=== PATIENT | male | born 1990 | race Caucasian/White ===

== ENCOUNTER 2023-10-31 09:58 | Emergency (ER) | payer OTHER, SELFPAY ==
[2023-10-31 10:00] VITALS: BP 171/104
[2023-10-31 10:22] VITALS: BP 164/92
--- NOTE | 2023-10-31 10:36 | ED.GENMED ---
History of Present Illness
General
Chief Complaint: Musculo-Skeletal Complaint
Time Seen by Provider: 10/31/23 10:16
Travel History
Have you had any contact with someone who has COVID-19?: No
Do you have any symptoms of coronavirus? Fever > 100 degrees, chills, cough, shortness of breath, sore throat, loss of taste or smell, muscle aches, or headache?: No
History of Present Illness
History of Present Illness:
33 yo male presents to the Emergency Department for evaluation of gradually worsening redness/swelling/pain to the L middle finger x 1 week. Began after he 'bit the cuticle'. Was seen at urgent care yesterday and started on cephalexin but no I&D was
performed. No fevers or chills.
Review of Systems
Review of Systems
Allergies reviewed?: Yes
All Other Systems: ROS reviewed and negative except as documented in HPI and ROS
Phy Exam
Physical Exam
Physical Exam:
GEN: Well appearing, NAD, WDWN
HEENT: Oral mucosa moist, no scleral icterus
Cardiac: Regular rate
Lung: No respiratory distress, no tachypnea
MSK: Swelling/erythema to eponychium/lateral nail fold of L middle finger, c/w paronychia. Some tenderness to finger pad, no induration
Skin: Good color, no pallor or jaundice, no rashes
Neuro: AO x3, moves all extremities freely
Psych: Calm, cooperative
Course
Vital Signs
Initial and Last Documented VS:
Initial Vital Signs
Temp Pulse Resp BP Pulse Ox
98.2 F 104 18 171/104 100
10/31/23 10:00 10/31/23 10:00 10/31/23 10:00 10/31/23 10:00 10/31/23 10:00
Last Documented Vital Signs
Temp Pulse Resp BP Pulse Ox
98.2 F 104 18 164/92 100
10/31/23 10:00 10/31/23 10:00 10/31/23 10:00 10/31/23 10:22 10/31/23 10:00
MDM/Problems Addressed
MDM/Problems Addressed:
The digit was anesthetized w/ 1% lidocaine 4mL, flexor tendon block approach. After gently cleansing the finger with alcohol, an 11 blade scalpel was used to raise the cuticle from the nail plate with rapid purulent discharge. Digit was massaged to
assure all purulence was removed. Digit was then soaked for 10 mins in warm water before applying a dressing.
Recommend holding abx at this time given source is now controlled, ED return parameters discussed
*Critical Care Note
Total Time (30-74mins, 75-104mins- exclusive of procedures): Not Applicable
ED Attending Note
-
Portions of this chart may have been created with voice recognition software.� Occasional wrong word or��sound alike� substitutions may have occurred due to the inherent limitations of voice recognition software.
Discharge Plan
Departure
Patient Disposition: Home (Routine Discharge)
Date of Disposition: 10/31/23
Time of Disposition: 10:36
Patient with high blood pressure during this ER visit?: No
Discharge Problem:
Paronychia of left middle finger
Instructions: Paronychia (DC)
Prescriptions:
No Action
cephalexin
1 tab PO BID
Activity Restrictions/Additional Instructions:
Hold the Keflex (cephalexin) for now. If the redness does not improve in 2-3 days, or if it begins to worsen, begin taking the antibiotic
Soak the finger 1-2 times per day for 15-20 minutes in warm salt water
Return to the ER if you develop severe finger stiffness or fevers
Interventions
Interventions:
*Risk Screen - Suicide Last Done: 10/31/23 10:13
*Neglect/Abuse Screening Last Done: 10/31/23 10:13
ED- Fall Risk Assessment Last Done: 10/31/23 10:15
*ED COVID-19 Vaccine History Last Done: 10/31/23 10:13
*Nursing Disposition Last Done: 10/31/23 10:51
Discharge Date and Time
Discharge Date/Time: 10/31/23 10:52
== END 2023-10-31 10:52 | disposition home or self-care (01) ==
LOC: EMR 09:58
PROVIDERS: EMERGENCY PHYSICIAN Emergency Medicine
DX: L03.012 Cellulitis of left finger (principal)
CPT/HCPCS: 99284; 10060